=== PATIENT | male | born 1965 | race Two or more races ===

== ENCOUNTER 2021-05-21 05:06 | Day surgery (SDC) | payer OTHER ==
[2021-05-19 16:56] VITALS: BMI 29.2
[2021-05-21 10:27] VITALS: TEMP 96.8
[2021-05-21 11:34] VITALS: BP 109/67; PULSE 64
== END 2021-05-21 11:30 | disposition home or self-care (01) ==
LOC: JASU-ENDO 05:06
PROVIDERS: ATTEND Internal Medicine Gastroenterology
PROC: 0DJD8ZZ Inspection of Lower Intestinal Tract, Via Natural or Artificial Opening Endoscopic (ICD-10-PCS; principal; 2021-05-21 09:30)
DX: Z12.11 Encounter for screening for malignant neoplasm of colon (principal); K64.8 Other hemorrhoids